=== PATIENT | male | born 1975 | race Two or more races ===

== ENCOUNTER 2018-03-08 08:05 | Emergency (ER) | payer SELFPAY ==
[2018-03-08 08:15] VITALS: BP 140/92
== END 2018-03-08 12:00 | disposition home or self-care (01) ==
LOC: ER 08:05
DX: S39.012A Strain of muscle, fascia and tendon of lower back, initial encounter (principal); V43.52XA Car driver injured in collision with other type car in traffic accident, initial encounter; Y93.89 Activity, other specified; Y99.8 Other external cause status; Y92.410 Unspecified street and highway as the place of occurrence of the external cause
CPT/HCPCS: 72100

== ENCOUNTER 2021-11-12 18:03 | Emergency (ER) | payer MEDICAID, OTHER ==
[~2021-11-12] VITALS: Ht 170.2 cm; Wt 90.7 kg
[2021-11-12] MEDS ORDERED: IOHEXOL 350 MG/ML 100ML IJ ONE (20:05)
[2021-11-13] MEDS ORDERED: IBU600T PO (00:53)
[2021-11-13 00:56] VITALS: BP 142/87
== END 2021-11-13 01:00 | disposition home or self-care (01) ==
LOC: EDBD 18:03 → ER 18:06
DX: S09.8XXA Other specified injuries of head, initial encounter (principal); M79.18 Myalgia, other site; V29.9XXA Motorcycle rider (driver) (passenger) injured in unspecified traffic accident, initial encounter; Y93.89 Activity, other specified; Y92.89 Other specified places as the place of occurrence of the external cause; Y99.8 Other external cause status
CPT/HCPCS: 70450; 71260; 72125; 74177; 99285; Q9967